=== PATIENT | female | born 1990 | race Caucasian/White ===

== ENCOUNTER 2018-07-11 07:15 | Inpatient (IN) | payer OTHER ==
[2018-07-11] MEDS ORDERED: OXYTOCIN 30 UNITS in 0.9% NS 30 UNIT/500 ML INFUS.BAG IVPB SCH (08:30)
[2018-07-11 08:33] VITALS: BMI 24.7
[2018-07-11 08:56] LABS: BASO % 0.3 % (0-2.0); EOS % 0.3 % (0-4.5); HEMATOCRIT 30.3 % (32.4-45.2); HEMOGLOBIN 9.6 GM/dL (10.7-15.3); LYMPH % 12.1 % (8-40); MCHC 31.7 g/dl (32.0-36.0); MEAN CELL VOLUME 72.7 fl (80-96); MEAN PLT VOLUME 9.4 fl (7.5-11.1); NEUT % 80.3 % (42.8-82.8); PLATELET COUNT 146 K/MM3 (134-434); RBC 4.17 M/mm3 (3.60-5.2); RDW 16.2 % (11.6-15.6); WHITE BLOOD COUNT 5.7 K/mm3 (4.0-10.0)
[2018-07-11] MEDS: LACTATED RINGERS SOLUTION 1,000 ML IV SCH ×2 (09:00→15:12)
[2018-07-11 09:41] LABS: INR 0.96 (0.83-1.09); PROTHROMBIN TIME (PATIENT) 10.9 SEC (9.7-13.0)
[2018-07-11 09:43] LABS: ACTIVATED PTT 22.8 SECONDS (25.2-36.5)
[2018-07-11 09:46] LABS: CREATININE 0.6 mg/dL (0.55-1.3)
[2018-07-11] MEDS ORDERED: BUTORPHANOL TARTRATE 1 MG/ML VIAL IVPB ONE (09:47)
[2018-07-11] MEDS ORDERED: PROMETHAZINE HCL 25 MG/1 ML VIAL IVPB ONE (09:47)
--- NOTE | 2018-07-11 09:47 | HP ---
Past Medical History - Admission Chief Complaint: Here for labor induction History of Present Illness: 28 y/o with SIUP at 41 weeks. Here for IOL. complicated only by failed 1'GTT but pt cleared by MFM, not GDM. GBS negative. History Source: Patient Limitations to Obtaining History: No Limitations - Past Medical History Cardiovascular: No: HTN Pulmonary: No: Asthma, COPD Gastrointestinal: No: GERD Hepatobiliary: No: Hepatitis B, Hepatitis C Renal/: No: UTI Reproductive: No: Ectopic ...: 2 ...Para: 1 ...Term: 1 ...: 0 ...Spon : 0 ...Induced : 0 ...Multiple Gestation: 0 ...LMP: 09/27/17 ... Weeks Gestation by Dates: 41.1 ...EDC by Dates: 07/03/18 ...EDC by Sono: 07/03/18 Heme/Onc: No: Sickle Cell Trait Infectious Disease: No: HIV, MRSA, STD's Psych: No: Anxiety, Depression, Panic - Past Surgical History Past Surgical History: Yes: None Hx Myomectomy: No Hx Transabdominal Cerclage: No - Smoking History Smoking history: Never smoked Have you smoked in the past 12 months: No - Alcohol/Substance Use Hx Alcohol Use: No History of Substance Use: reports: None - Social History History of Recent Travel: No Home Medications - Allergies Allergies/Adverse Reactions: Allergies Allergy/AdvReac Type Severity Reaction Status Date / Time Sulfa (Sulfonamide Allergy Mild Hives Verified 07/11/18 08:42 Antibiotics) dipirone Allergy Mild Rash Uncoded 07/11/18 08:42 - Home Medications Home Medications: Ambulatory Orders Vitamins (Sjr) - 1 tab PO DAILY 06/13/16 Review of Systems - Review of Systems Constitutional: reports: No Symptoms Eyes: reports: No Symptoms HENT: reports: No Symptoms Neck: reports: No Symptoms Cardiovascular: reports: No Symptoms Respiratory: reports: No Symptoms Gastrointestinal: reports: No Symptoms Genitourinary: reports: No Symptoms Breasts: reports: No Symptoms Reported Musculoskeletal: reports: No Symptoms Integumentary: reports: No Symptoms Neurological: reports: No Symptoms Endocrine: reports: No Symptoms Hematology/Lymphatic: reports: No Symptoms Psychiatric: reports: No Symptoms Physical Exam - Maternity Vital Signs: Vital Signs Temperature 98.2 F 07/11/18 07:45 Pulse Rate 90 07/11/18 09:01 Respiratory Rate 20 07/11/18 09:01 Blood Pressure 112/74 07/11/18 09:01 O2 Sat by Pulse Oximetry (%) Constitutional: Yes: Well Nourished, No Distress, Calm Eyes: Yes: Conjunctiva Clear, EOM Intact HENT: Yes: Atraumatic, Normocephalic Neck: Yes: Supple, Trachea Midline Cardiovascular: Yes: Regular Rate and Rhythm Lungs: Clear to auscultation Breast(s): Yes: WNL - Abdominal Exam/OB Number of Fetuses: Single Presentation: Vertex Category: I Accelerations: Uniform Decelerations: None - Vaginal Exam/OB Dilatation (cm): 1.5 Effacement (%): 50 Amniotic Membrane Status: Intact - Physical Exam Psychiatric: Yes: Alert, Oriented - Labs Lab Results: CBC, BMP 07/11/18 08:40 Hemorrhage Risk Assessment - Risk Factors Medium Risk Factors: Yes: None High Risk Factors: Yes: None Risk Score: 1 Risk Level: Medium Risk Problem List - Problems (1) Post-dates Code(s): O48.0 - POST-TERM Assessment/Plan 28 Y/O with SIUP at 41 + weeks, for IOL AFVSs FHTS cat 1 pt declines cervidil ripening will start pitocin GBS negative
[2018-07-11 10:11] LABS: ANION GAP 9 MMOL/L (8-16); BLOOD UREA NITROGEN 6 mg/dL (7-18); CALCIUM 8.6 mg/dL (8.5-10.1); CHLORIDE 111 mmol/L (98-107); CO2 20 mmol/L (21-32); GLUCOSE,RANDOM 132 mg/dL (74-106); POTASSIUM 3.5 mmol/L (3.5-5.1); SODIUM 140 mmol/L (136-145)
[2018-07-11] MEDS ORDERED: OXYTOCIN 30 UNITS in 0.9% NS 30 UNIT/500 ML INFUS.BAG IVPB ONE (10:13)
[2018-07-11] MEDS ORDERED: TUBERCULIN PPD 5 TU/0.1ML SYRINGE (IN PATIENT USE ONLY) ID ONE (10:15)
[2018-07-11] MEDS ORDERED: PROMETHAZINE HCL 25 MG/1 ML VIAL ONE (19:30)
[2018-07-11] MEDS ORDERED: BUTORPHANOL TARTRATE 1 MG/ML VIAL ONE ×3 (19:30→19:36)
--- NOTE | 2018-07-11 19:32 | PN ---
Ante-Partal Exam - Subjective Subjective: Pt asking for analgesia, pitocin on 5. Category 1 heart tracing. Vital Signs: Vital Signs Temperature 98.1 F 07/11/18 18:00 Pulse Rate 86 07/11/18 18:00 Respiratory Rate 18 07/11/18 18:00 Blood Pressure 128/80 07/11/18 18:00 O2 Sat by Pulse Oximetry (%) Bleeding: No Headache: No Visual changes: No Right upper quadrant pain: No Pain (scale 1-10): 9 - Contractions Contractions: Yes Regularity: Regular Intensity: Strong - Exam during Labor Heart Rate: 145 Variability: Moderate Category: I Monitor Accelerations: Present Monitor Decelerations: None Exam: Vaginal Dilatation (cm): 6 Effacement (%): 100 Amniotic Membrane Status: Ruptured (AROM for clear fluid) Presentation: Vertex Station: -1 - Assessment/Plan Assessment/Plan: AROM for clear fluid continue pitocin stadol/phenergan now continue active management anticipate
[2018-07-11] MEDS ORDERED: METHYLERGONOVINE MALEATE 0.2 MG/1 ML AMP IM PRN (20:50)
[2018-07-11] MEDS ORDERED: BENZOCAINE 28 GM HEMORRHOIDAL OINTMENT TP PRN (20:50)
[2018-07-11] MEDS ORDERED: IBUPROFEN 600 MG TABLET (FP) PO PRN (20:50)
[2018-07-11] MEDS ORDERED: WITCH HAZEL 50% (TUCKS) 40 PAD/JAR PAD TP PRN (20:50)
[2018-07-11] MEDS ORDERED: BENZOCAINE 20% 57 GM BOTTLE TP PRN (20:50)
[2018-07-11] MEDS ORDERED: ACETAMINOPHEN 325 MG TABLET (FP) PO PRN (20:50)
[2018-07-11] MEDS ORDERED: BISACODYL 10 MG SUPP.RECT RC PRN (20:50)
--- NOTE | 2018-07-11 20:50 | PN ---
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 Name: Luisa Jimenez Infant Gender: Female Position: OA - 1 Minute Total Score: 9 5 Minutes Total Score: 9 - [place] Feeding Plan Initial Plan: Elected not to breastfeed exclusively throughout hospitalization Remarks - Remarks Remarks: Uncomplicated across intact perineum from direct OA position tight nuchal cord noted after delivery of head, cut at perineum remainder of delivered with ease and assessed by neonatology who was present for entire delivery cord blood collection for personal stem cell storage completed placenta delivered spontaneously and in tact mom stable baby to well baby nursery sponge count correct
[2018-07-11] MEDS ORDERED: OXYTOCIN 20 UNITS in 0.9% NS 20 UNIT/1,000 ML INFUS.BAG IV ONE (20:59)
[2018-07-11] MEDS ORDERED: OXYTOCIN 20 UNITS in 0.9% NS 20 UNIT/1,000 ML INFUS.BAG IV SCH (21:00)
[2018-07-12 07:14] LABS: BASO % 0.1 % (0-2.0); HEMATOCRIT 27.3 % (32.4-45.2); HEMOGLOBIN 8.8 GM/dL (10.7-15.3); LYMPH % 9.2 % (8-40); MCH 23.4 pg (25.7-33.7); MCHC 32.4 g/dl (32.0-36.0); MEAN CELL VOLUME 72.1 fl (80-96); MEAN PLT VOLUME 9.5 fl (7.5-11.1); MONO % 8.7 % (3.8-10.2); PLATELET COUNT 148 K/MM3 (134-434); RBC 3.79 M/mm3 (3.60-5.2); RDW 16.1 % (11.6-15.6); WHITE BLOOD COUNT 9.3 K/mm3 (4.0-10.0)
[2018-07-12] MEDS: FERROUS SO4 325 MG TABLET (FP) PO SCH ×3 (09:29→17:49)
[2018-07-12] MEDS: PRENATAL VITAMINS W/ FOLIC ACID TABLET (FP) PO SCH (09:30)
[2018-07-12] MEDS ORDERED: PRENATAL VITAMINS W/ FOLIC ACID TABLET (FP) PO SCH (10:00)
[2018-07-12] MEDS ORDERED: DIPHTH,PERTUSS(ACELL),TET 0.5 ML DISP.SYRIN IM ONE (10:00)
--- NOTE | 2018-07-12 15:02 | PN ---
Post Progress Note - Subjective Subjective: Pt seen/evaluated and doing well. NO pain, without difficulty. Tolerating diet. VB minimal. Denies CP/SOB/F/C/SHAIKH. Type of Delivery: Vital Signs: Vital Signs Temperature 98.8 F 07/12/18 13:42 Pulse Rate 98 H 07/12/18 13:42 Respiratory Rate 18 07/12/18 13:42 Blood Pressure 120/74 07/12/18 13:42 O2 Sat by Pulse Oximetry (%) Uterus: Yes: Fundus Firm Abdomen/GI: Yes: Abdomen soft, Passing flatus, Tolerating PO. No: Tender Lochia: Yes: Rubra Lochia, amount: Small Extremities: Yes: Calves non-tender, Edema (trace b/l edema) Perineum: Yes: Laceration (1st degree laceration) Activity: Ambulating - Labs Labs: CBC WBC 9.3 K/mm3 (4.0-10.0) 07/12/18 06:00 RBC 3.79 M/mm3 (3.60-5.2) 07/12/18 06:00 Hgb 8.8 GM/dL (10.7-15.3) L 07/12/18 06:00 Hct 27.3 % (32.4-45.2) L 07/12/18 06:00 MCV 72.1 fl (80-96) L 07/12/18 06:00 MCH 23.4 pg (25.7-33.7) L 07/12/18 06:00 MCHC 32.4 g/dl (32.0-36.0) 07/12/18 06:00 RDW 16.1 % (11.6-15.6) H 07/12/18 06:00 Plt Count 148 K/MM3 (134-434) 07/12/18 06:00 MPV 9.5 fl (7.5-11.1) 07/12/18 06:00 Absolute Neuts (auto) 7.6 K/mm3 (1.5-8.0) 07/12/18 06:00 Neutrophils % 82.0 % (42.8-82.8) 07/12/18 06:00 Lymphocytes % 9.2 % (8-40) D 07/12/18 06:00 Monocytes % 8.7 % (3.8-10.2) 07/12/18 06:00 Eosinophils % 0.0 % (0-4.5) D 07/12/18 06:00 Basophils % 0.1 % (0-2.0) 07/12/18 06:00 Nucleated RBC % 0 % (0-0) 07/12/18 06:00 Problem List - Problems (1) Post-dates Code(s): O48.0 - POST-TERM (2) Normal spontaneous vaginal delivery Code(s): O80 - ENCOUNTER FOR FULL-TERM UNCOMPLICATED DELIVERY (3) Anemia Code(s): D64.9 - ANEMIA, UNSPECIFIED Assessment/Plan 28 y/o PPD#1 s/p normal AFVSS Anemia - continue PO Iron regular diet PO pain meds routine care
--- NOTE | 2018-07-12 16:08 | DS ---
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: Vital Signs Temperature 98.8 F 07/12/18 13:42 Pulse Rate 98 H 07/12/18 13:42 Respiratory Rate 18 07/12/18 13:42 Blood Pressure 120/74 07/12/18 13:42 O2 Sat by Pulse Oximetry (%) Constitutional: Yes: Well Nourished, No Distress, Calm Eyes: Yes: Conjunctiva Clear, EOM Intact Neck: Yes: Supple Cardiovascular: Yes: Regular Rate and Rhythm Respiratory: Yes: WNL Gastrointestinal: Yes: WNL ....Post : Yes: Uterus firm, Uterus non-tender Neurological: Yes: Alert, Oriented Psychiatric: Yes: Alert, Oriented Labs: CBC, BMP 07/12/18 06:00 07/11/18 08:40 Delivery - Delivery Vaginal Delivery: No Problems Type of Anesthesia: None Episiotomy/Laceration: None EBL (cc): 250 Delivery, Single - Stages of Labor Date 1st Stage Initiatied: 07/11/18 Time 1st Stage Initiated: 11:00 Date 2nd Stage Initiated: 07/11/18 Time 2nd Stage Initiated: 20:20 Date of Delivery: 07/11/18 Time of Delivery: 20:37 Time Placenta Delivered: 20:50 Placenta: Yes: Spontaneous - 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 The patient was started on pitocin and in the early evening of 07/11 the patient's membranes were artificially ruptured. Several hours later the patient underwent a normal vaginal delivery. She then underwent a post course complicated only by slight anemia, she was given Iron pills. She was discharged home in stable condition on post day 2. Condition: Good - Instructions Diet, Activity, Other Instructions: Physical activity Resume your normal everyday activity as tolerated no heavy lifting or exercise until seen by your surgeon. You may walk unlimited klaus of and climb stairs. You may resume driving the car when you feel safe and comfortable behind the wheel. No sexual activity as instructed. Diet There are no dietary restrictions. Eat healthy, high-fiber foods. Drink 6 to 8 glasses of liquid each day. This will assist in keeping your bowels regular. Pain management You may take Tylenol or Ibuprofen (for example, Motrin, Advil etc.) as needed for pain. Call MD for any of the following: Severe pain not relieved by medication Fever of 101 or higher Excessive bleeding or drainage on dressing Inability to urinate Disposition: HOME - Home Medications Comprehensive Discharge Medication List: Ambulatory Orders Vitamins (Sjr) - 1 tab PO DAILY 06/13/16 Ibuprofen [Motrin -] 600 mg PO QID PRN #28 tablet 07/12/18
[2018-07-12] MEDS: LACTATED RINGERS SOLUTION 1,000 ML IV SCH (19:56)
[2018-07-12] MEDS ORDERED: SENNOSIDES/DOCUSATE COMBO (SENNA PLUS) TABLET (UD) PO PRN (22:00)
[2018-07-13 08:31] VITALS: BP 98/61; PULSE 81; TEMP 98.7
[2018-07-13] MEDS: FERROUS SO4 325 MG TABLET (FP) PO SCH ×2 (08:59→11:39)
[2018-07-13] MEDS: PRENATAL VITAMINS W/ FOLIC ACID TABLET (FP) PO SCH (09:00)
== END 2018-07-13 13:00 | disposition home or self-care (01) | DRG 560 ==
LOC: JLDR 07:15 → J3W 22:55
PROVIDERS: ADMIT Obstetrics & Gynecology; ATTEND Obstetrics & Gynecology
PROC: 10E0XZZ Delivery of Products of Conception, External Approach (ICD-10-PCS; principal; 2018-07-11)
PROC: 0HQ9XZZ Repair Perineum Skin, External Approach (ICD-10-PCS; 2018-07-11)
DX: O48.0 Post-term pregnancy (principal); O69.1XX0 Labor and delivery complicated by cord around neck, with compression, not applicable or unspecified; O70.0 First degree perineal laceration during delivery; O99.013 Anemia complicating pregnancy, third trimester; D64.9 Anemia, unspecified; Z37.0 Single live birth; Z3A.41 41 weeks gestation of pregnancy
CPT/HCPCS: 36415; 59409; 80048; 85025; 85610; 85730; 86593; 86850; 86900; 86901; 90715